=== PATIENT | male | born 1965 | race Caucasian/White ===

== ENCOUNTER 2020-06-22 22:36 | Emergency (ER) | payer OTHER ==
[~2020-06-22] VITALS: Ht 172.7 cm; Wt 91.0 kg
[2020-06-22] MEDS ORDERED: MECLIZINE 25MG TABLET PO ONE (23:15)
[2020-06-22] MEDS ORDERED: ACETAZOLAMIDE 500MG ER CAPSULE PO ONE (23:15)
[2020-06-22] MEDS ORDERED: ONDANSETRON 4MG ODT PO ONE (23:15)
[2020-06-22 23:53] LABS: BASOPHILS % 0.9 % (0.0-2.0); EOSINOPHILS % 2.7 % (0.0-5.0); HEMATOCRIT. 41.6 % (42.0-52.0); HEMOGLOBIN. 13.8 g/dL (14.0-18.0); LYMPHOCYTES % 17.3 % (20.0-50.0); MEAN CORPUSCULAR HEMOGLOBIN 29.9 pg (28.0-32.0); MEAN CORPUSCULAR VOLUME 90.2 fL (80.0-94.0); MEAN PLATELET VOLUME 7.3 fl (7.4-10.4); MONOCYTES % 9.5 % (2.0-8.0); NEUTROPHILS % 69.6 % (40.0-76.0); PLATELET 224 x1000/uL (130-400); RED CELL DISTRIBUTION WIDTH 12.8 % (11.6-14.6)
[2020-06-23 00:18] LABS: CHLORIDE 105 mEq/L (98-107)
[2020-06-23] MEDS ORDERED: MECL-159 MT (01:43)
[2020-06-23 02:19] VITALS: BP 133/88
== END 2020-06-23 02:20 | disposition home or self-care (01) ==
LOC: ER 22:36
DX: R42 Dizziness and giddiness (principal); Z87.440 Personal history of urinary (tract) infections
CPT/HCPCS: 36415; 70450; 71045; 80053; 83605; 83735; 83880; 84484; 85025; 93005; 99285; J8597; Q0162